=== PATIENT | male | born 1975 | race Caucasian/White ===

== ENCOUNTER 2017-01-27 12:58 | Emergency (ER) | payer OTHER ==
[2017-01-27 13:07] VITALS: BP 131/87; PULSE 97; TEMP 98.1; BMI 30.4
[2017-01-27] MEDS ORDERED: IBUPROFEN 600 MG TABLET (FP) PO ONE ×2 (13:34→13:38)
[2017-01-27] MEDS ORDERED: SULFAMETHOXAZOLE/TRIMETHOPRIM 800MG/160MG D.S. TABLET PO ONE (13:34)
--- NOTE | 2017-01-27 13:37 | PDOC ---
History of Present Illness - General Chief Complaint: Abscess Boil Stated Complaint: LEFT BUTTOCK BOIL Time Seen by Provider: 01/27/17 13:08 History Source: Patient Exam Limitations: No Limitations - History of Present Illness Initial Comments: 01/27/17 13:37 42-year-old male with history of lower back pain presents with left buttocks abscess. The patient reports that he had recently vacationed in the [facility] and noticed approximately one week ago that he was developing a small boil. We will had started to progress and enlarged until he arrived from the [facility] yesterday night. Denies any fevers or chills but came to the ED for further evaluation. Past History - Past Medical History Allergies/Adverse Reactions: Allergies Allergy/AdvReac Type Severity Reaction Status Date / Time No Known Allergies Allergy Verified 01/27/17 13:00 Home Medications: Ambulatory Orders Alprazolam [Xanax] 1 mg PO BID 01/27/17 Oxycodone HCl [Roxicodone] 30 mg PO TID 01/27/17 Sulfamethoxazole/Trimethoprim [Bactrim Ds -] 1 tab PO BID #14 tablet 01/27/17 Other medical history: HERNIATED DISC L4,L5/ARTHRITIS,BULGED DISC S1,S2,CRUSHED NERVE BTWEEN S1-S5 - Psycho/Social/Smoking Cessation Hx Anxiety: Yes Suicidal Ideation: No Smoking History: Current every day smoker Number of Cigarettes Smoked Daily: 10 Information on smoking cessation initiated: No Hx Alcohol Use: No Drug/Substance Use Hx: No Substance Use Type: None Review of Systems - Review of Systems Able to Perform ROS?: Yes Comments:: 01/27/17 13:38 GENERAL/CONSTITUTIONAL: No fever, weakness. HEAD, EYES, EARS, NOSE AND THROAT: No change in vision. No ear pain or discharge. No sore throat. CARDIOVASCULAR: No chest pain or shortness of breath. RESPIRATORY: No cough, wheezing, or hemoptysis. GASTROINTESTINAL: No abdominal pain, nausea, vomiting, diarrhea, or decreased PO intolerance. GENITOURINARY: No dysuria, frequency, or change in urination. MUSCULOSKELETAL: No joint or muscle swelling or pain. No neck or back pain. SKIN: + left buttocks abscess NEUROLOGIC: No headache, vertigo, loss of consciousness, or change in strength/ sensation. ENDOCRINE: No increased thirst. No abnormal weight change. HEMATOLOGIC/LYMPHATIC: No anemia, easy bleeding, or history of blood clots. ALLERGIC/IMMUNOLOGIC: No hives or skin allergy. *Physical Exam - Vital Signs Last Vital Signs Temp Pulse Resp BP Pulse Ox 98.1 F 97 H 18 131/87 98 01/27/17 13:05 01/27/17 13:05 01/27/17 13:05 01/27/17 13:05 01/27/17 13:05 - Physical Exam Comments: 01/27/17 13:38 GENERAL: Awake, alert, and fully oriented, in no acute distress. HEAD: No signs of trauma EYES: PERRLA, EOMI, sclera anicteric, conjunctiva clear ENT: Auricles normal inspection, hearing grossly normal, nares patent, oropharynx clear without exudates. NECK: Normal ROM, supple, no lymphadenopathy, JVD, or masses LUNGS: Breath sounds equal, clear to auscultation bilaterally. No wheezes, and no crackles HEART: Regular rate and rhythm, normal S1 and S2, no murmurs, rubs or gallops ABDOMEN: Soft, nontender, normoactive bowel sounds. No guarding, no rebound. No masses EXTREMITIES: Normal range of motion, no edema. No clubbing or cyanosis. No cords, erythema, or tenderness NEUROLOGICAL: Cranial nerves II through XII grossly intact. Normal speech, normal gait SKIN: ~4x4 cm induration and 1x1 cm fluctuance overlying the medial left buttocks. No rectal involvement. Procedures - Incision and Drainage I&D Site: Left: Buttock Betadine cleansed: (cleansed with alcohol pads) Anesthesia: 1% Lidocaine Volume(ml): 2 Blade Size: 11 Attempts: 1 Plain Packing: Yes Complications: other Medical Decision Making - Medical Decision Making 01/27/17 13:39 The patient appears to have an abscess on left buttocks. An incision and drainage was performed with approximately 3 mL of serosanguineous fluid extracted. The surrounding area appears to have elements of cellulitis. We'll initiate Bactrim. I have instructed the patient to return to the ED in 2 days for packing exchange. Patient verbalized understanding agrees with plan. I discussed the physical exam findings, ancillary test results and final diagnoses with the patient. I answered all of the patient's questions. The patient was satisfied with the care received and felt comfortable with the discharge plan and treatment plan. The patient will call their primary care physician within 24 hours to arrange follow-up and will return to the Emergency Department with any new, persistant or worsening symptoms. *DC/Admit/Observation/Transfer Diagnosis at time of Disposition: Abscess - Discharge Dispostion Disposition: HOME Condition at time of disposition: Improved Admit: No - Prescriptions Prescriptions: Sulfamethoxazole/Trimethoprim [Bactrim Ds -] 1 tab PO BID #14 tablet - Patient Instructions Printed Discharge Instructions: DI for Incision and Drainage of a Skin Abscess Additional Instructions: Take 600 mg of ibuprofen every 6 hours needed for pain. It is important that you take the antibiotics Bactrim every 12 hours for the next 7 days. Please do not miss a dose and please complete the antibiotics. If you notice any worsening pain or swelling despite antibiotics, please call your doctor or return to the ER for further evaluation. Please return to the ER in 2 days for wound check and for packing change.
[2017-01-27] MEDS ORDERED: SULFAMETHOXAZOLE/TRIMETHOPRIM 800MG/160MG D.S. TABLET ONE (13:39)
== END 2017-01-27 13:50 | disposition home or self-care (01) ==
LOC: FER 12:58
PROC: 0H98XZZ Drainage of Buttock Skin, External Approach (ICD-10-PCS; principal; 2017-01-27)
DX: L02.31 Cutaneous abscess of buttock (principal); F17.210 Nicotine dependence, cigarettes, uncomplicated
CPT/HCPCS: 10060; 99282-25

== ENCOUNTER 2021-02-06 14:44 | Emergency (ER) | payer OTHER ==
[2021-02-06 14:55] VITALS: BMI 31.6
[2021-02-06] MEDS ORDERED: COLCHICINE 0.6 MG TAB PO ONE ×2 (15:14→16:15)
[2021-02-06] MEDS ORDERED: COLCHICINE 0.6 MG CAP ONE ×2 (15:17→16:26)
[2021-02-06] MEDS ORDERED: IBUPROFEN 400 MG TABLET (FP) PO ONE ×3 (15:33→18:51)
[2021-02-06 16:48] VITALS: BP 150/97; PULSE 110; TEMP 98.1
== END 2021-02-06 16:50 | disposition home or self-care (01) ==
LOC: FER 14:44
DX: R22.42 Localized swelling, mass and lump, left lower limb (principal); S93.402A Sprain of unspecified ligament of left ankle, initial encounter
CPT/HCPCS: 73610-TC-LT-FY; 73630-TC-LT; 99284-25

== ENCOUNTER 2021-03-09 14:50 | Emergency (ER) | payer OTHER ==
[2021-03-09 15:16] VITALS: BMI 32.0
[2021-03-09 16:24] LABS: HEMATOCRIT 30.3 % (35.4-49); HEMOGLOBIN 9.9 GM/dl (11.7-16.9); MCH 35.3 pg (25.7-33.7); MCHC 32.5 g/dl (32.0-35.9); MEAN CELL VOLUME 108.6 fl (80-96); MEAN PLT VOLUME 7.1 fl (7.5-11.1); PLATELET COUNT 56 K/MM3 (134-434); RBC 2.79 M/mm3 (4.00-5.60); RDW 17.2 % (11.9-15.9); WHITE BLOOD COUNT 2.9 K/mm3 (4.0-10.8)
[2021-03-09 16:32] LABS: ACTIVATED PTT 24.3 SECONDS (25.2-36.5)
[2021-03-09 16:34] LABS: ALBUMIN 3.3 g/dl (3.4-5.0); BILIRUBIN,TOTAL 2.2 mg/dl (0.2-1); CALCIUM 7.6 mg/dl (8.5-10); CREATININE 1.3 mg/dl (0.55-1.3); TOT PROT 7.8 g/dl (6.4-8.2)
[2021-03-09 16:36] LABS: INR 1.49 (0.82-1.09); PROTHROMBIN TIME (PATIENT) 16.3 SEC (10.2-13.0)
[2021-03-09] MEDS ORDERED: POTASSIUM CHLORIDE ORAL LIQUID 20 MEQ/15 ML PO ONE (16:53)
[2021-03-09] MEDS ORDERED: SODIUM CHLORIDE 0.9% 500 ML INFUS.BAG IV ONE (16:54)
[2021-03-09] MEDS ORDERED: POTASSIUM CHLORIDE TABS 20 MEQ TABLET.ER (FP) PO ONE (17:00)
[2021-03-09 18:28] LABS: ANISOCYTOSIS 1+; PLATELET ESTIMATE DECREASED
[2021-03-09 21:02] VITALS: BP 147/98; PULSE 125; TEMP 98.8
== END 2021-03-09 21:00 | disposition left against medical advice (07) ==
LOC: FER 14:50
DX: R55 Syncope and collapse (principal); R00.0 Tachycardia, unspecified; E87.6 Hypokalemia; D69.6 Thrombocytopenia, unspecified
CPT/HCPCS: 36415; 70450-TC; 71260-TC; 72125-TC; 74177-TC; 80053; 85025; 85610; 85730; 93005; 99285-25; C9803; Q9967; U0003; U0005

== ENCOUNTER 2021-06-25 15:17 | Emergency (ER) | payer OTHER ==
[2021-06-25 15:33] VITALS: BP 126/54; PULSE 124; TEMP 99; BMI 32.0
== END 2021-06-25 16:48 | disposition home or self-care (01) ==
LOC: FER 15:17
PROC: 0H98XZZ Drainage of Buttock Skin, External Approach (ICD-10-PCS; principal; 2021-06-25)
DX: L02.31 Cutaneous abscess of buttock (principal)
CPT/HCPCS: 10060; 87070; 87076; 87205; 99284-25

== ENCOUNTER 2021-07-09 16:21 | Inpatient (IN) | payer OTHER ==
[2021-07-09] MEDS ORDERED: SODIUM CHLORIDE 0.9% 500 ML INFUS.BAG IV ONE ×2 (17:20→18:05)
[2021-07-09] MEDS ORDERED: ACETAMINOPHEN 1000 MG/100 ML VIAL (NON FORMULARY) IVPB ONE (17:20)
[2021-07-09 17:34] LABS: HEMATOCRIT 25.1 % (35.4-49); HEMOGLOBIN 8.4 GM/dl (11.7-16.9); MCH 36.6 pg (25.7-33.7); MCHC 33.6 g/dl (32.0-35.9); MEAN PLT VOLUME 7.6 fl (7.5-11.1); PLATELET COUNT 49 10^3/uL (134-434); RDW 17.4 % (11.9-15.9); WHITE BLOOD COUNT 3.1 K/mm3 (4.0-10.8)
[2021-07-09 17:41] LABS: ACTIVATED PTT 24.1 SECONDS (25.2-36.5)
[2021-07-09 17:43] LABS: ALBUMIN 2.4 g/dl (3.4-5.0); BILIRUBIN,TOTAL 3.4 mg/dl (0.2-1); TOT PROT 7.2 g/dl (6.4-8.2)
[2021-07-09] MEDS ORDERED: ACETAMINOPHEN INJECTION 100 ML IVPB ONE (17:44)
[2021-07-09 17:45] LABS: INR 1.59 (0.82-1.09); PROTHROMBIN TIME (PATIENT) 17.8 SEC (10.2-13.0)
[2021-07-09 17:47] LABS: CALCIUM 5.8 mg/dl (8.5-10)
[2021-07-09 18:19] LABS: BASO % 0.3 % (0-2.0); HEMATOCRIT 23.8 % (35.4-49); HEMOGLOBIN 8.1 GM/dl (11.7-16.9); LYMPH % 6.9 % (8-40); MCHC 33.9 g/dl (32.0-35.9); MEAN CELL VOLUME 109.3 fl (80-96); MEAN PLT VOLUME 7.5 fl (7.5-11.1); MONO % 18.5 % (3.8-10.2); NEUT % 74.3 % (42.8-82.8); PLATELET COUNT 46 10^3/uL (134-434); RBC 2.18 M/mm3 (4.00-5.60); RDW 17.1 % (11.9-15.9); WHITE BLOOD COUNT 3.3 K/mm3 (4.0-10.8)
[2021-07-09 18:35] LABS: ANISOCYTOSIS 1+; MACROCYTOSIS 1+; PLATELET ESTIMATE DECREASED
[2021-07-09 18:38] LABS: ALBUMIN 2.5 g/dl (3.4-5.0); BILIRUBIN,TOTAL 3.2 mg/dl (0.2-1); CREATININE 1.8 mg/dl (0.55-1.3); TOT PROT 7.1 g/dl (6.4-8.2)
[2021-07-09 18:45] LABS: CALCIUM 5.7 mg/dl (8.5-10)
[2021-07-09] MEDS ORDERED: PIPERACILLIN/TAZOB 3.375 GM 3.375 GM in DEXTROSE 5%-WATER - 50 ML IVPB ONE (18:59)
[2021-07-09] MEDS ORDERED: VANCOMYCIN HCL 1,500 MG in DEXTROSE 5%-WATER - 500 ML IVPB ONE (18:59)
[2021-07-09] MEDS ORDERED: CALCIUM GLUC IN NACL, ISO-OSM 1 GM/50 ML BAG IVPB ONE (19:11)
[2021-07-09] MEDS ORDERED: POTASSIUM CHLORIDE TABS 20 MEQ TABLET.ER (FP) PO ONE ×2 (19:12→20:07)
[2021-07-09 19:21] LABS: URIC ACID 9.2 mg/dl (2.6-7.2)
[2021-07-09] MEDS ORDERED: PIPERACILLIN/TAZOBACTAM 3.375 GM VIAL IVPB ONE (19:24)
[2021-07-09] MEDS ORDERED: VANCOMYCIN 1,000 MG VIAL (RESTRICTED TO ID ONLY) ONE (19:24)
[2021-07-09] MEDS ORDERED: CALCIUM GLUCONATE 10% - 1,000 MG/10 ML VIAL ONE (20:07)
[2021-07-09] MEDS ORDERED: KCL 10 MEQ IVPB 10 MEQ/100 ML INFUS.BAG IVPB ONE ×2 (20:07→20:36)
[2021-07-09] MEDS: KCL 10 MEQ IVPB 10 MEQ/100 ML INFUS.BAG IVPB SCH ×2 (20:17→21:01)
[2021-07-09 20:59] LABS: URIC ACID CRYSTALS 1+ /hpf (NONE SEEN)
[2021-07-09] MEDS ORDERED: oxyCODONE HCL 5 MG TABLET PO ONE (21:10)
[2021-07-09] MEDS ORDERED: oxyCODONE HCL 5 MG TABLET ONE (21:13)
[2021-07-09] MEDS ORDERED: ALPRAZolam 0.25 MG TABLET ONE (21:13)
[2021-07-09] MEDS: ALPRAZolam 1 MG TABLET PO PRN (21:25)
[2021-07-09 22:42] LABS: CALCIUM 5.7 mg/dl (8.5-10); CREATININE 1.9 mg/dl (0.55-1.3)
[2021-07-10] MEDS ORDERED: ACETAMINOPHEN 325 MG TABLET (FP) ONE (02:36)
[2021-07-10] MEDS ORDERED: oxyCODONE HCL 5 MG TABLET ONE (02:37)
[2021-07-10] MEDS ORDERED: oxyCODONE HCL 5 MG TABLET PO ONE (04:05)
[2021-07-10 05:16] LABS: HEMATOCRIT 19.5 % (35.4-49); MCH 37.7 pg (25.7-33.7); MCHC 35.5 g/dl (32.0-35.9); MEAN CELL VOLUME 106.3 fl (80-96); MEAN PLT VOLUME 7.4 fl (7.5-11.1); PLATELET COUNT 38 10^3/uL (134-434); RBC 1.84 M/mm3 (4.00-5.60); RDW 17.9 % (11.9-15.9)
[2021-07-10 05:39] LABS: HEMOGLOBIN 6.9 GM/dL (11.7-16.9); WHITE BLOOD COUNT 1.8 K/mm3 (4.0-10.0)
[2021-07-10] MEDS: ALPRAZolam 1 MG TABLET PO PRN ×2 (05:59→22:25)
[2021-07-10 06:10] LABS: ANION GAP 12 MMOL/L (8-16); BLOOD UREA NITROGEN 19.3 mg/dL (7-18); CALCIUM 5.7 mg/dL (8.5-10.1); CHLORIDE 82 mmol/L (98-107); CO2 27 mmol/L (21-32); CREATININE 1.8 mg/dL (0.55-1.3); GLUCOSE,RANDOM 91 mg/dL (74-106); MAGNESIUM 0.8 mg/dL (1.8-2.4); PHOSPHOROUS 2.9 mg/dL (2.5-4.9); SODIUM 121 mmol/L (136-145)
[2021-07-10] MEDS ORDERED: MAGNESIUM SULF 50% (8.12 MEQ/2 ML-1 GM VIAL) IVPB ONE ×2 (08:39→17:26)
[2021-07-10] MEDS ORDERED: CALCIUM GLUCONATE 10% - 1,000 MG/10 ML VIAL IVPB ONE (08:45)
[2021-07-10] MEDS: POTASSIUM CHLORIDE TABS 20 MEQ TABLET.ER (FP) PO SCH ×2 (09:45→10:11)
[2021-07-10 09:50] LABS: ANISOCYTOSIS 2+; MACROCYTOSIS 2+; PLATELET ESTIMATE DECREASED
[2021-07-10] MEDS: KCL 10 MEQ IVPB 10 MEQ/100 ML INFUS.BAG IVPB SCH ×6 (11:00→20:00)
[2021-07-10] MEDS: MUPIROCIN 2% TOPICAL OINTMENT FOR DECOLONIZATION NS SCH ×2 (11:34→21:24)
[2021-07-10] MEDS: oxyCODONE HCL 5 MG TABLET PO PRN ×3 (12:30→22:25)
[2021-07-10 16:46] LABS: HEMATOCRIT 20.9 % (35.4-49); HEMOGLOBIN 7.2 GM/dL (11.7-16.9); MCH 37.1 pg (25.7-33.7); MCHC 34.6 g/dl (32.0-35.9); MEAN CELL VOLUME 107.2 fl (80-96); MEAN PLT VOLUME 7.8 fl (7.5-11.1); PLATELET COUNT 38 10^3/uL (134-434); RBC 1.95 M/mm3 (4.00-5.60); RDW 18.4 % (11.9-15.9)
[2021-07-10 16:58] LABS: CHLORIDE 88 mmol/L (98-107); SODIUM 124 mmol/L (136-145)
[2021-07-10 17:00] LABS: ANION GAP 10 MMOL/L (8-16); BLOOD UREA NITROGEN 17.1 mg/dL (7-18); CO2 26 mmol/L (21-32); GLUCOSE,RANDOM 138 mg/dL (74-106)
[2021-07-10 17:04] LABS: CREATININE 1.7 mg/dL (0.55-1.3)
[2021-07-10 17:08] LABS: CALCIUM 6.4 mg/dL (8.5-10.1); WHITE BLOOD COUNT 1.3 K/mm3 (4.0-10.0)
[2021-07-10] MEDS ORDERED: CALCIUM GLUCONATE 10% - 1,000 MG/10 ML VIAL IVPUSH ONE (17:19)
[2021-07-10 17:22] LABS: MAGNESIUM 1.4 mg/dL (1.8-2.4)
[2021-07-10 17:26] LABS: PHOSPHOROUS 2.4 mg/dL (2.5-4.9)
[2021-07-10] MEDS ORDERED: ALPRAZolam 1 MG TABLET PO PRN (18:30)
[2021-07-10 18:39] LABS: ANISOCYTOSIS 0; MACROCYTOSIS 0; PLATELET ESTIMATE DECREASED
[2021-07-10] MEDS: CALCIUM (OYSTER SHELL) 500 MG TABLET (FP) PO SCH (21:24)
[2021-07-10] MEDS: CHLORHEXIDINE GLUCONATE 4% CLEANSER FOR DECOLONIZATION TP SCH (21:24)
[2021-07-10] MEDS ORDERED: ALPRAZolam 1 MG TABLET PO SCH (22:00)
[2021-07-10 22:09] LABS: CHLORIDE 88 mmol/L (98-107); SODIUM 126 mmol/L (136-145)
[2021-07-10 22:11] LABS: ANION GAP 11 MMOL/L (8-16); BLOOD UREA NITROGEN 16.5 mg/dL (7-18); CO2 26 mmol/L (21-32); MAGNESIUM 1.7 mg/dL (1.8-2.4)
[2021-07-10 22:12] LABS: GLUCOSE,RANDOM 126 mg/dL (74-106)
[2021-07-10 22:14] LABS: CREATININE 1.6 mg/dL (0.55-1.3); SGOT/AST 86 U/L (15-37)
[2021-07-10 22:15] LABS: PHOSPHOROUS 1.8 mg/dL (2.5-4.9)
[2021-07-10 22:16] LABS: BILIRUBIN,TOTAL 2.1 mg/dL (0.2-1); TOT PROT 6.9 g/dl (6.4-8.2)
[2021-07-10 22:17] LABS: ALK PHOS 116 U/L (45-117)
[2021-07-10 22:23] LABS: SGPT/ALT 41 U/L (13-61)
[2021-07-10 22:34] LABS: CALCIUM 6.9 mg/dL (8.5-10.1)
[2021-07-11] MEDS: ALPRAZolam 1 MG TABLET PO PRN ×3 (02:56→19:57)
[2021-07-11] MEDS: oxyCODONE HCL 5 MG TABLET PO PRN ×4 (02:56→21:40)
[2021-07-11] MEDS ORDERED: NAPH,MB-DB/K PH,MBDB POWDER PACKET PO ONE (05:00)
[2021-07-11] MEDS ORDERED: MAGNESIUM OXIDE 400 MG TABLET (FP) PO ONE (05:00)
[2021-07-11 06:41] LABS: HEMATOCRIT 19.5 % (35.4-49); MCH 37.6 pg (25.7-33.7); MCHC 34.6 g/dl (32.0-35.9); MEAN CELL VOLUME 108.7 fl (80-96); PLATELET COUNT 45 10^3/uL (134-434); RBC 1.79 M/mm3 (4.00-5.60); RDW 17.9 % (11.9-15.9)
[2021-07-11 06:51] LABS: HEMOGLOBIN 6.7 GM/dL (11.7-16.9); WHITE BLOOD COUNT 1.6 K/mm3 (4.0-10.0)
[2021-07-11 06:55] LABS: CHLORIDE 90 mmol/L (98-107); SODIUM 127 mmol/L (136-145)
[2021-07-11 07:04] LABS: ALBUMIN 1.8 g/dl (3.4-5.0); ANION GAP 10 MMOL/L (8-16); BLOOD UREA NITROGEN 13.2 mg/dL (7-18); CO2 27 mmol/L (21-32); GLUCOSE,RANDOM 97 mg/dL (74-106); MAGNESIUM 1.5 mg/dL (1.8-2.4)
[2021-07-11 07:07] LABS: CREATININE 1.5 mg/dL (0.55-1.3); PHOSPHOROUS 2.6 mg/dL (2.5-4.9); SGOT/AST 75 U/L (15-37); SGPT/ALT 36 U/L (13-61)
[2021-07-11 07:08] LABS: BILIRUBIN,TOTAL 2.4 mg/dL (0.2-1); TOT PROT 6.4 g/dl (6.4-8.2)
[2021-07-11 07:10] LABS: ALK PHOS 107 U/L (45-117)
[2021-07-11 07:30] LABS: CALCIUM 6.8 mg/dL (8.5-10.1)
[2021-07-11] MEDS ORDERED: MAGNESIUM SULF 50% (8.12 MEQ/2 ML-1 GM VIAL) IVPB ONE (07:45)
[2021-07-11 08:57] LABS: ANISOCYTOSIS 2+; MACROCYTOSIS 2+; PLATELET ESTIMATE DECREASED
[2021-07-11] MEDS: KCL 10 MEQ IVPB 10 MEQ/100 ML INFUS.BAG IVPB SCH ×3 (09:00→12:14)
[2021-07-11] MEDS ORDERED: PT OWN MED DRAWER 7, Y5N ONE ×4 (09:26→21:37)
[2021-07-11] MEDS: MUPIROCIN 2% TOPICAL OINTMENT FOR DECOLONIZATION NS SCH ×2 (09:33→21:42)
[2021-07-11] MEDS: CALCIUM (OYSTER SHELL) 500 MG TABLET (FP) PO SCH ×2 (09:34→22:52)
[2021-07-11] MEDS: POTASSIUM CHLORIDE ORAL LIQUID 20 MEQ/15 ML PO SCH ×2 (09:37→09:59)
[2021-07-11] MEDS ORDERED: POTASSIUM CHLORIDE TABS 20 MEQ TABLET.ER (FP) PO SCH ×2 (10:00→11:15)
[2021-07-11] MEDS ORDERED: SODIUM CHLORIDE 1,000 ML IV SCH (11:00)
[2021-07-11] MEDS: POTASSIUM CHLORIDE TABS 20 MEQ TABLET.ER (FP) PO SCH ×2 (12:45→21:40)
[2021-07-11 12:49] LABS: URINE BARBITURATES NEGATIVE (NEGATIVE)
[2021-07-11 12:50] LABS: METHADONE, UR NEGATIVE (NEGATIVE); OPIATES, URI NEGATIVE (NEGATIVE); PHENCYCLIDINE,URINE NEGATIVE (NEGATIVE)
[2021-07-11 12:52] LABS: COCAINE, UR NEGATIVE (NEGATIVE); URINE AMPHETAMINES NEGATIVE (NEGATIVE); URINE BENZODIAZEPINES POSITIVE (NEGATIVE)
[2021-07-11 12:52] LABS: LDH 141 U/L (87-246)
[2021-07-11 16:06] LABS: INR 1.26 (0.83-1.09); PROTHROMBIN TIME (PATIENT) 15.5 SEC (9.7-13.0)
[2021-07-11 16:09] LABS: ACTIVATED PTT 26.9 SECONDS (25.2-36.5)
[2021-07-11 16:30] LABS: CALCIUM 7.2 mg/dL (8.5-10.1)
[2021-07-11 16:31] LABS: MAGNESIUM 1.9 mg/dL (1.8-2.4)
[2021-07-11 16:34] LABS: CREATININE 1.4 mg/dL (0.55-1.3); PHOSPHOROUS 2.6 mg/dL (2.5-4.9)
[2021-07-11 16:35] LABS: BLOOD UREA NITROGEN 13.1 mg/dL (7-18)
[2021-07-11] MEDS ORDERED: PANTOPRAZOLE 40 MG TABLET PO ONE (18:00)
[2021-07-11 21:25] LABS: HEMATOCRIT 23.1 % (35.4-49); HEMOGLOBIN 7.9 GM/dL (11.7-16.9); MCH 36.1 pg (25.7-33.7); MCHC 34.1 g/dl (32.0-35.9); PLATELET COUNT 48 10^3/uL (134-434); RBC 2.18 M/mm3 (4.00-5.60)
[2021-07-11] MEDS: CHLORHEXIDINE GLUCONATE 4% CLEANSER FOR DECOLONIZATION TP SCH (21:42)
[2021-07-11 21:49] LABS: CALCIUM 7.9 mg/dL (8.5-10.1)
[2021-07-11 21:50] LABS: BLOOD UREA NITROGEN 12.2 mg/dL (7-18)
[2021-07-11 21:53] LABS: CREATININE 1.4 mg/dL (0.55-1.3)
[2021-07-11 22:20] LABS: ANISOCYTOSIS 2+; MACROCYTOSIS 1+; PLATELET ESTIMATE DECREASED; TARGET CELLS 1+
[2021-07-12] MEDS: ALPRAZolam 1 MG TABLET PO PRN (01:30)
[2021-07-12] MEDS: oxyCODONE HCL 5 MG TABLET PO PRN ×3 (01:40→20:30)
[2021-07-12 02:48] LABS: CALCIUM 7.7 mg/dL (8.5-10.1)
[2021-07-12 02:49] LABS: BLOOD UREA NITROGEN 11.2 mg/dL (7-18)
[2021-07-12 02:52] LABS: CREATININE 1.4 mg/dL (0.55-1.3)
[2021-07-12 06:56] LABS: INR 1.26 (0.83-1.09); PROTHROMBIN TIME (PATIENT) 15.5 SEC (9.7-13.0)
[2021-07-12 06:57] LABS: MCH 36.4 pg (25.7-33.7); MCHC 34.2 g/dl (32.0-35.9); MEAN CELL VOLUME 106.2 fl (80-96); MEAN PLT VOLUME 7.5 fl (7.5-11.1); PLATELET COUNT 67 10^3/uL (134-434); RBC 1.88 M/mm3 (4.00-5.60); RDW 20.1 % (11.9-15.9)
[2021-07-12 06:58] LABS: ACTIVATED PTT 26.7 SECONDS (25.2-36.5)
[2021-07-12 07:06] LABS: HEMOGLOBIN 6.8 GM/dL (11.7-16.9); WHITE BLOOD COUNT 1.6 K/mm3 (4.0-10.0)
[2021-07-12 07:08] LABS: CHLORIDE 96 mmol/L (98-107); SODIUM 131 mmol/L (136-145)
[2021-07-12 07:18] LABS: BILIRUBIN,TOTAL 1.5 mg/dL (0.2-1)
[2021-07-12 07:19] LABS: ALBUMIN 1.9 g/dl (3.4-5.0); ANION GAP 7 MMOL/L (8-16); CALCIUM 7.5 mg/dL (8.5-10.1); CO2 29 mmol/L (21-32); GLUCOSE,RANDOM 83 mg/dL (74-106)
[2021-07-12 07:20] LABS: ALK PHOS 98 U/L (45-117); CREATININE 1.3 mg/dL (0.55-1.3); MAGNESIUM 1.5 mg/dL (1.8-2.4); PHOSPHOROUS 2.3 mg/dL (2.5-4.9); SGOT/AST 43 U/L (15-37); SGPT/ALT 32 U/L (13-61)
[2021-07-12 07:21] LABS: TOT PROT 6.2 g/dl (6.4-8.2)
[2021-07-12 07:23] LABS: BLOOD UREA NITROGEN 10.2 mg/dL (7-18)
[2021-07-12] MEDS ORDERED: MAGNESIUM SULF 50% (8.12 MEQ/2 ML-1 GM VIAL) IVPB ONE (07:29)
[2021-07-12 09:02] LABS: ANISOCYTOSIS 2+; MACROCYTOSIS 2+; PLATELET ESTIMATE DECREASED
[2021-07-12] MEDS ORDERED: SODIUM PHOSPHATE - 15 MM in SODIUM CHLORIDE 250 ML IVPB ONE (09:15)
[2021-07-12] MEDS: POTASSIUM CHLORIDE TABS 20 MEQ TABLET.ER (FP) PO SCH ×2 (10:17→21:56)
[2021-07-12] MEDS ORDERED: ALPRAZolam 1 MG TABLET PO PRN (10:50)
[2021-07-12] MEDS ORDERED: SODIUM CHLORIDE 1,000 ML IV SCH ×2 (11:15→22:04)
[2021-07-12] MEDS: MUPIROCIN 2% TOPICAL OINTMENT FOR DECOLONIZATION NS SCH ×2 (12:46→22:03)
[2021-07-12] MEDS ORDERED: CEFEPIME HCL/D5W 2 GM/50 ML BAG IVPB SCH ×2 (14:12→22:00)
[2021-07-12] MEDS ORDERED: CEFEPIME 2 GM in DEXTROSE 5%-WATER 2 GM/100 ML BAG IVPB SCH ×2 (14:15→22:00)
[2021-07-12 14:37] VITALS: BMI 31.5
[2021-07-12] MEDS: CEFEPIME 1 GM in DEXTROSE 5%-WATER 100 ML IVPB SCH (17:05)
[2021-07-12] MEDS: VANCOMYCIN 1 GRAM (PRE-DOCKED) 1,000 MG/250 ML BAG IVPB SCH (17:43)
[2021-07-12 18:41] LABS: BASO % 1.3 % (0-2.0); EOS % 0.5 % (0-4.5); HEMATOCRIT 23.7 % (35.4-49); HEMOGLOBIN 8.2 GM/dL (11.7-16.9); LYMPH % 22.6 % (8-40); MCH 35.6 pg (25.7-33.7); MCHC 34.5 g/dl (32.0-35.9); MEAN CELL VOLUME 103.4 fl (80-96); MEAN PLT VOLUME 7.7 fl (7.5-11.1); MONO % 18.3 % (3.8-10.2); NEUT % 57.3 % (42.8-82.8); PLATELET COUNT 62 10^3/uL (134-434); RBC 2.29 M/mm3 (4.00-5.60); RDW 20.7 % (11.9-15.9)
[2021-07-12 19:34] LABS: ANISOCYTOSIS 2+; MACROCYTOSIS 1+; PLATELET ESTIMATE DECREASED
[2021-07-12] MEDS: CHLORHEXIDINE GLUCONATE 4% CLEANSER FOR DECOLONIZATION TP SCH (22:04)
[2021-07-12 22:06] LABS: HIV INTERPRETATION NEGATIVE (NEGATIVE)
[2021-07-13] MEDS: oxyCODONE HCL 5 MG TABLET PO PRN ×5 (00:14→22:39)
[2021-07-13] MEDS: ALPRAZolam 1 MG TABLET PO PRN ×3 (00:15→22:39)
[2021-07-13] MEDS ORDERED: DEXTROSE 5%-WATER 100 ML IVPB ONE ×3 (01:05→16:10)
[2021-07-13] MEDS ORDERED: CEFEPIME HCL 1 GM VIAL (RESTRICTED TO ID) ONE ×3 (01:05→16:10)
[2021-07-13] MEDS: CEFEPIME 1 GM in DEXTROSE 5%-WATER 100 ML IVPB SCH ×3 (01:20→17:01)
[2021-07-13] MEDS ORDERED: MELATONIN 5 MG TABLETS PO PRN (02:45)
[2021-07-13] MEDS: VANCOMYCIN 1 GRAM (PRE-DOCKED) 1,000 MG/250 ML BAG IVPB SCH ×2 (04:46→16:36)
[2021-07-13 08:50] LABS: HEMATOCRIT 21.8 % (35.4-49); HEMOGLOBIN 7.5 GM/dL (11.7-16.9); MCH 36.1 pg (25.7-33.7); MCHC 34.2 g/dl (32.0-35.9); MEAN CELL VOLUME 105.3 fl (80-96); MEAN PLT VOLUME 7.1 fl (7.5-11.1); PLATELET COUNT 56 10^3/uL (134-434); RBC 2.07 M/mm3 (4.00-5.60); RDW 21.1 % (11.9-15.9)
[2021-07-13 09:10] LABS: WHITE BLOOD COUNT 1.8 K/mm3 (4.0-10.0)
[2021-07-13 09:12] LABS: CALCIUM 7.7 mg/dL (8.5-10.1)
[2021-07-13 09:13] LABS: MAGNESIUM 1.5 mg/dL (1.8-2.4)
[2021-07-13 09:16] LABS: CREATININE 1.3 mg/dL (0.55-1.3); PHOSPHOROUS 3.1 mg/dL (2.5-4.9)
[2021-07-13 09:18] LABS: BILIRUBIN,TOTAL 1.9 mg/dL (0.2-1); TOT PROT 6.7 g/dl (6.4-8.2)
[2021-07-13] MEDS ORDERED: MUPIROCIN 2% TOPICAL OINTMENT FOR DECOLONIZATION NS SCH (10:00)
[2021-07-13 10:19] LABS: ANISOCYTOSIS 1+; MACROCYTOSIS 1+; PLATELET ESTIMATE DECREASED
[2021-07-13] MEDS ORDERED: MAGNESIUM SULF 50% (8.12 MEQ/2 ML-1 GM VIAL) IVPB ONE (15:08)
[2021-07-13] MEDS ORDERED: MAGNESIUM 2GM/50ML STERILE WATER IVPB IVPB ONE (16:15)
[2021-07-13] MEDS: MAGNESIUM OXIDE 400 MG TABLET (FP) PO SCH (16:32)
[2021-07-13 17:08] LABS: FREE KAPPA,SERUM 141.8 mg/L (3.3-19.4)
[2021-07-13] MEDS: MELATONIN 5 MG TABLETS PO SCH (22:20)
[2021-07-13] MEDS ORDERED: diphenhydrAMINE HCL 25 MG CAPSULE (FP) PO ONE (23:00)
[2021-07-13] MEDS ORDERED: ZOLPIDEM TARTRATE 5 MG TABLET PO ONE (23:23)
[2021-07-14] MEDS ORDERED: DEXTROSE 5%-WATER 100 ML IVPB ONE ×3 (00:30→16:42)
[2021-07-14] MEDS ORDERED: CEFEPIME HCL 1 GM VIAL (RESTRICTED TO ID) ONE ×3 (00:30→16:42)
[2021-07-14] MEDS: CEFEPIME 1 GM in DEXTROSE 5%-WATER 100 ML IVPB SCH ×3 (01:24→18:46)
[2021-07-14] MEDS: VANCOMYCIN 1 GRAM (PRE-DOCKED) 1,000 MG/250 ML BAG IVPB SCH ×2 (04:14→19:39)
[2021-07-14 09:29] LABS: BASO % 0.6 % (0-2.0); EOS % 1.4 % (0-4.5); HEMATOCRIT 24.4 % (35.4-49); HEMOGLOBIN 8.4 GM/dL (11.7-16.9); LYMPH % 29.8 % (8-40); MCH 36.9 pg (25.7-33.7); MCHC 34.4 g/dl (32.0-35.9); MEAN CELL VOLUME 107.3 fl (80-96); MEAN PLT VOLUME 7.3 fl (7.5-11.1); MONO % 15.5 % (3.8-10.2); NEUT % 52.7 % (42.8-82.8); PLATELET COUNT 65 10^3/uL (134-434); RBC 2.27 M/mm3 (4.00-5.60); RDW 20.1 % (11.9-15.9); WHITE BLOOD COUNT 2.2 K/mm3 (4.0-10.0)
[2021-07-14 09:51] LABS: ALBUMIN 2.2 g/dl (3.4-5.0); BLOOD UREA NITROGEN 8.9 mg/dL (7-18)
[2021-07-14 09:55] LABS: MAGNESIUM 1.5 mg/dL (1.8-2.4)
[2021-07-14 09:57] LABS: CREATININE 1.3 mg/dL (0.55-1.3)
[2021-07-14] MEDS: MAGNESIUM OXIDE 400 MG TABLET (FP) PO SCH (10:00)
[2021-07-14 10:02] LABS: BILIRUBIN,TOTAL 1.6 mg/dL (0.2-1); TOT PROT 7.3 g/dl (6.4-8.2)
[2021-07-14] MEDS: oxyCODONE HCL 5 MG TABLET PO PRN ×4 (10:48→23:04)
[2021-07-14 12:14] LABS: ANISOCYTOSIS 1+; MACROCYTOSIS 1+; PLATELET ESTIMATE DECREASED
[2021-07-14] MEDS: ALPRAZolam 1 MG TABLET PO PRN ×2 (13:38→21:54)
[2021-07-14] MEDS: metroNIDAZOLE 250 MG TABLET PO SCH ×2 (13:39→21:54)
[2021-07-14] MEDS: ZOLPIDEM TARTRATE 5 MG TABLET PO PRN (21:54)
[2021-07-14] MEDS: MELATONIN 5 MG TABLETS PO SCH (21:54)
[2021-07-15] MEDS ORDERED: CEFEPIME HCL 1 GM VIAL (RESTRICTED TO ID) ONE ×3 (00:29→16:35)
[2021-07-15] MEDS ORDERED: DEXTROSE 5%-WATER 100 ML IVPB ONE ×3 (00:29→16:35)
[2021-07-15] MEDS: CEFEPIME 1 GM in DEXTROSE 5%-WATER 100 ML IVPB SCH ×3 (01:24→17:38)
[2021-07-15] MEDS: metroNIDAZOLE 250 MG TABLET PO SCH ×3 (05:36→22:18)
[2021-07-15] MEDS: VANCOMYCIN 1 GRAM (PRE-DOCKED) 1,000 MG/250 ML BAG IVPB SCH ×2 (05:37→16:16)
[2021-07-15] MEDS: oxyCODONE HCL 5 MG TABLET PO PRN ×5 (05:37→22:17)
[2021-07-15] MEDS ORDERED: FOLIC ACID INJECTION - 1 MG, THIAMINE HCL 100 MG, MULTIVIT INJECTION ADULT 10 ML in SOD... IVPB ONE (08:50)
[2021-07-15] MEDS: FOLIC ACID 1 MG TABLET (FP) PO SCH (09:54)
[2021-07-15] MEDS: THIAMINE HCL 100 MG TABLET (FP) PO SCH (09:54)
[2021-07-15] MEDS: MAGNESIUM OXIDE 400 MG TABLET (FP) PO SCH (09:54)
[2021-07-15 11:14] LABS: HEMATOCRIT 21.5 % (35.4-49); HEMOGLOBIN 7.4 GM/dL (11.7-16.9); MCH 36.6 pg (25.7-33.7); MCHC 34.3 g/dl (32.0-35.9); MEAN CELL VOLUME 106.5 fl (80-96); MEAN PLT VOLUME 7.2 fl (7.5-11.1); PLATELET COUNT 48 10^3/uL (134-434); RBC 2.02 M/mm3 (4.00-5.60); RDW 19.7 % (11.9-15.9)
[2021-07-15 11:25] LABS: WHITE BLOOD COUNT 1.5 K/mm3 (4.0-10.0)
[2021-07-15 11:37] LABS: CALCIUM 7.7 mg/dL (8.5-10.1)
[2021-07-15 11:38] LABS: BLOOD UREA NITROGEN 10.1 mg/dL (7-18); MAGNESIUM 1.3 mg/dL (1.8-2.4)
[2021-07-15 11:41] LABS: CREATININE 1.3 mg/dL (0.55-1.3)
[2021-07-15 11:42] LABS: BILIRUBIN,TOTAL 1.5 mg/dL (0.2-1); TOT PROT 6.8 g/dl (6.4-8.2)
[2021-07-15 11:48] LABS: ANISOCYTOSIS 1+; MACROCYTOSIS 1+; PLATELET ESTIMATE DECREASED
[2021-07-15] MEDS ORDERED: PT OWN MED DRAWER 7, Y5N ONE ×2 (12:17→16:06)
[2021-07-15 14:08] LABS: DRVVT - 37.7 sec (0.0-47.0)
[2021-07-15] MEDS: ALPRAZolam 1 MG TABLET PO PRN ×3 (14:12→22:18)
[2021-07-15] MEDS: MELATONIN 5 MG TABLETS PO SCH (22:18)
[2021-07-16] MEDS: ZOLPIDEM TARTRATE 5 MG TABLET PO PRN (00:41)
[2021-07-16] MEDS ORDERED: CEFEPIME HCL 1 GM VIAL (RESTRICTED TO ID) ONE ×3 (02:00→19:49)
[2021-07-16] MEDS ORDERED: DEXTROSE 5%-WATER 100 ML IVPB ONE ×3 (02:01→19:49)
[2021-07-16] MEDS: oxyCODONE HCL 5 MG TABLET PO PRN ×6 (02:18→22:30)
[2021-07-16] MEDS: CEFEPIME 1 GM in DEXTROSE 5%-WATER 100 ML IVPB SCH ×3 (02:18→19:54)
[2021-07-16] MEDS: VANCOMYCIN 1 GRAM (PRE-DOCKED) 1,000 MG/250 ML BAG IVPB SCH ×2 (06:20→20:26)
[2021-07-16] MEDS: metroNIDAZOLE 250 MG TABLET PO SCH ×3 (06:21→21:15)
[2021-07-16 08:45] LABS: HEMATOCRIT 20.9 % (35.4-49); HEMOGLOBIN 7.2 GM/dL (11.7-16.9); MCH 36.9 pg (25.7-33.7); MCHC 34.3 g/dl (32.0-35.9); MEAN CELL VOLUME 107.7 fl (80-96); MEAN PLT VOLUME 7.4 fl (7.5-11.1); PLATELET COUNT 40 10^3/uL (134-434); RBC 1.94 M/mm3 (4.00-5.60); RDW 19.8 % (11.9-15.9)
[2021-07-16 09:22] LABS: BILIRUBIN,TOTAL 1.6 mg/dL (0.2-1); BLOOD UREA NITROGEN 10.7 mg/dL (7-18); TOT PROT 6.6 g/dl (6.4-8.2)
[2021-07-16 09:23] LABS: CALCIUM 7.6 mg/dL (8.5-10.1); MAGNESIUM 1.4 mg/dL (1.8-2.4)
[2021-07-16 09:25] LABS: CREATININE 1.4 mg/dL (0.55-1.3)
[2021-07-16 09:28] LABS: WHITE BLOOD COUNT 1.6 K/mm3 (4.0-10.0)
[2021-07-16] MEDS: MAGNESIUM OXIDE 400 MG TABLET (FP) PO SCH (09:36)
[2021-07-16] MEDS: FOLIC ACID 1 MG TABLET (FP) PO SCH (09:36)
[2021-07-16 09:41] LABS: ANISOCYTOSIS 0; MACROCYTOSIS 1+; PLATELET ESTIMATE DECREASED
[2021-07-16] MEDS: THIAMINE HCL 100 MG TABLET (FP) PO SCH (09:52)
[2021-07-16] MEDS: ALPRAZolam 1 MG TABLET PO PRN ×2 (14:29→23:41)
[2021-07-16] MEDS: MELATONIN 5 MG TABLETS PO SCH (23:23)
[2021-07-17] MEDS ORDERED: DEXTROSE 5%-WATER 100 ML IVPB ONE ×3 (00:21→17:35)
[2021-07-17] MEDS ORDERED: CEFEPIME HCL 1 GM VIAL (RESTRICTED TO ID) ONE ×3 (00:21→17:35)
[2021-07-17] MEDS: ZOLPIDEM TARTRATE 5 MG TABLET PO PRN (00:39)
[2021-07-17] MEDS: CEFEPIME 1 GM in DEXTROSE 5%-WATER 100 ML IVPB SCH ×3 (01:36→17:47)
[2021-07-17] MEDS: VANCOMYCIN 1 GRAM (PRE-DOCKED) 1,000 MG/250 ML BAG IVPB SCH ×2 (04:24→16:08)
[2021-07-17] MEDS: metroNIDAZOLE 250 MG TABLET PO SCH ×3 (05:49→22:00)
[2021-07-17] MEDS: THIAMINE HCL 100 MG TABLET (FP) PO SCH (09:22)
[2021-07-17] MEDS: FOLIC ACID 1 MG TABLET (FP) PO SCH (09:22)
[2021-07-17] MEDS: MAGNESIUM OXIDE 400 MG TABLET (FP) PO SCH (09:22)
[2021-07-17] MEDS: oxyCODONE HCL 5 MG TABLET PO PRN ×4 (09:23→22:00)
[2021-07-17 09:45] LABS: HEMATOCRIT 23.6 % (35.4-49); HEMOGLOBIN 8.1 GM/dL (11.7-16.9); MCH 35.9 pg (25.7-33.7); MCHC 34.3 g/dl (32.0-35.9); MEAN CELL VOLUME 104.5 fl (80-96); MEAN PLT VOLUME 7.4 fl (7.5-11.1); PLATELET COUNT 45 10^3/uL (134-434); RBC 2.26 M/mm3 (4.00-5.60); RDW 21.8 % (11.9-15.9)
[2021-07-17 09:57] LABS: ALBUMIN 2.1 g/dl (3.4-5.0); BLOOD UREA NITROGEN 10.9 mg/dL (7-18); CALCIUM 7.8 mg/dL (8.5-10.1)
[2021-07-17 10:01] LABS: CREATININE 1.4 mg/dL (0.55-1.3)
[2021-07-17 10:02] LABS: TOT PROT 6.5 g/dl (6.4-8.2); WHITE BLOOD COUNT 1.7 K/mm3 (4.0-10.0)
[2021-07-17 10:04] LABS: BILIRUBIN,TOTAL 1.6 mg/dL (0.2-1)
[2021-07-17] MEDS ORDERED: ALPRAZolam 0.25 MG TABLET PO PRN (12:48)
[2021-07-17] MEDS ORDERED: oxyCODONE HCL 5 MG TABLET PO PRN (12:49)
[2021-07-17 12:51] LABS: ANISOCYTOSIS 1+; MACROCYTOSIS 0; PLATELET ESTIMATE DECREASED
[2021-07-17] MEDS: ALPRAZolam 1 MG TABLET PO PRN (23:03)
[2021-07-17] MEDS: MELATONIN 5 MG TABLETS PO SCH (23:03)
[2021-07-18] MEDS ORDERED: CEFEPIME HCL 1 GM VIAL (RESTRICTED TO ID) ONE ×3 (00:44→17:08)
[2021-07-18] MEDS ORDERED: DEXTROSE 5%-WATER 100 ML IVPB ONE ×3 (00:45→17:08)
[2021-07-18] MEDS: ZOLPIDEM TARTRATE 5 MG TABLET PO PRN (00:47)
[2021-07-18] MEDS: CEFEPIME 1 GM in DEXTROSE 5%-WATER 100 ML IVPB SCH ×3 (01:18→17:26)
[2021-07-18] MEDS: VANCOMYCIN 1 GRAM (PRE-DOCKED) 1,000 MG/250 ML BAG IVPB SCH (04:13)
[2021-07-18] MEDS: metroNIDAZOLE 250 MG TABLET PO SCH ×3 (06:07→22:56)
[2021-07-18] MEDS: oxyCODONE HCL 5 MG TABLET PO PRN ×4 (07:42→20:15)
[2021-07-18 07:54] LABS: HEMATOCRIT 23.6 % (35.4-49); MCH 35.2 pg (25.7-33.7); MCHC 33.9 g/dl (32.0-35.9); MEAN CELL VOLUME 103.7 fl (80-96); MEAN PLT VOLUME 7.2 fl (7.5-11.1); PLATELET COUNT 39 10^3/uL (134-434); RBC 2.28 M/mm3 (4.00-5.60); RDW 21.4 % (11.9-15.9)
[2021-07-18 07:56] LABS: WHITE BLOOD COUNT 1.7 K/mm3 (4.0-10.0)
[2021-07-18 08:10] LABS: BLOOD UREA NITROGEN 10.2 mg/dL (7-18); CALCIUM 7.7 mg/dL (8.5-10.1)
[2021-07-18 08:14] LABS: CREATININE 1.4 mg/dL (0.55-1.3)
[2021-07-18] MEDS: FOLIC ACID 1 MG TABLET (FP) PO SCH (09:18)
[2021-07-18] MEDS: MAGNESIUM OXIDE 400 MG TABLET (FP) PO SCH (09:19)
[2021-07-18] MEDS: THIAMINE HCL 100 MG TABLET (FP) PO SCH (09:19)
[2021-07-18 10:47] LABS: ANISOCYTOSIS 1+; MACROCYTOSIS 0; PLATELET ESTIMATE DECREASED; TEAR DROP CELLS 1+
[2021-07-18] MEDS: ALPRAZolam 1 MG TABLET PO PRN ×2 (13:58→22:57)
[2021-07-18] MEDS: MELATONIN 5 MG TABLETS PO SCH (22:57)
[2021-07-19] MEDS: oxyCODONE HCL 5 MG TABLET PO PRN ×6 (00:14→22:02)
[2021-07-19] MEDS: ZOLPIDEM TARTRATE 5 MG TABLET PO PRN (00:44)
[2021-07-19] MEDS ORDERED: DEXTROSE 5%-WATER 100 ML IVPB ONE ×3 (02:04→17:39)
[2021-07-19] MEDS ORDERED: CEFEPIME HCL 1 GM VIAL (RESTRICTED TO ID) ONE ×3 (02:04→17:39)
[2021-07-19] MEDS: CEFEPIME 1 GM in DEXTROSE 5%-WATER 100 ML IVPB SCH ×3 (02:47→17:48)
[2021-07-19] MEDS: VANCOMYCIN 1 GRAM (PRE-DOCKED) 1,000 MG/250 ML BAG IVPB SCH ×2 (03:00→04:16)
[2021-07-19] MEDS: metroNIDAZOLE 250 MG TABLET PO SCH (06:15)
[2021-07-19 08:54] LABS: HEMATOCRIT 24.2 % (35.4-49); HEMOGLOBIN 8.2 GM/dL (11.7-16.9); MCH 35.8 pg (25.7-33.7); MEAN CELL VOLUME 105.1 fl (80-96); MEAN PLT VOLUME 7.7 fl (7.5-11.1); PLATELET COUNT 48 10^3/uL (134-434)
[2021-07-19 09:14] LABS: WHITE BLOOD COUNT 1.9 K/mm3 (4.0-10.0)
[2021-07-19 09:52] LABS: ALBUMIN 2.2 g/dl (3.4-5.0); BLOOD UREA NITROGEN 10.6 mg/dL (7-18); CALCIUM 7.8 mg/dL (8.5-10.1)
[2021-07-19 09:55] LABS: CREATININE 1.4 mg/dL (0.55-1.3)
[2021-07-19 09:57] LABS: BILIRUBIN,TOTAL 1.1 mg/dL (0.2-1)
[2021-07-19 09:58] LABS: TOT PROT 6.8 g/dl (6.4-8.2)
[2021-07-19 10:06] LABS: ALPHA 2 MACROGLOBULINS,QN 105 mg/dL (110-276); ALT(SGPT)P5P 13 IU/L (0-55); CHOLESTEROL TOTAL 82 mg/dL (100-199); FIBROSIS SCORE 0.45 (0.00-0.21); GLUCOSE SERUM 85 mg/dL (65-99); HEIGHT 77 in (.); WEIGHT- 266 LBS (.)
[2021-07-19] MEDS: MAGNESIUM OXIDE 400 MG TABLET (FP) PO SCH (10:10)
[2021-07-19] MEDS: THIAMINE HCL 100 MG TABLET (FP) PO SCH (10:11)
[2021-07-19] MEDS: FOLIC ACID 1 MG TABLET (FP) PO SCH (10:11)
[2021-07-19 11:05] LABS: ANISOCYTOSIS 1+; MACROCYTOSIS 1+; PLATELET ESTIMATE DECREASED
[2021-07-19] MEDS: ALPRAZolam 1 MG TABLET PO PRN ×2 (15:10→22:51)
[2021-07-19] MEDS: MELATONIN 5 MG TABLETS PO SCH (22:51)
[2021-07-20] MEDS: ZOLPIDEM TARTRATE 5 MG TABLET PO PRN (00:26)
[2021-07-20] MEDS ORDERED: CEFEPIME HCL 1 GM VIAL (RESTRICTED TO ID) ONE ×3 (02:17→17:01)
[2021-07-20] MEDS ORDERED: DEXTROSE 5%-WATER 100 ML IVPB ONE ×3 (02:17→17:01)
[2021-07-20] MEDS: CEFEPIME 1 GM in DEXTROSE 5%-WATER 100 ML IVPB SCH ×3 (02:18→17:05)
[2021-07-20] MEDS: oxyCODONE HCL 5 MG TABLET PO PRN ×6 (02:19→23:58)
[2021-07-20 08:37] LABS: HEMATOCRIT 24.7 % (35.4-49); HEMOGLOBIN 8.5 GM/dL (11.7-16.9); MCH 36.3 pg (25.7-33.7); MCHC 34.4 g/dl (32.0-35.9); MEAN CELL VOLUME 105.4 fl (80-96); MEAN PLT VOLUME 7.9 fl (7.5-11.1); PLATELET COUNT 58 10^3/uL (134-434); RBC 2.34 M/mm3 (4.00-5.60); RDW 20.6 % (11.9-15.9); WHITE BLOOD COUNT 1.9 K/mm3 (4.0-10.0)
[2021-07-20 09:16] LABS: ALBUMIN 2.4 g/dl (3.4-5.0); BLOOD UREA NITROGEN 12.1 mg/dL (7-18); CALCIUM 8.2 mg/dL (8.5-10.1)
[2021-07-20 09:20] LABS: BILIRUBIN,TOTAL 1.3 mg/dL (0.2-1); CREATININE 1.4 mg/dL (0.55-1.3)
[2021-07-20 09:21] LABS: TOT PROT 7.2 g/dl (6.4-8.2)
[2021-07-20] MEDS ORDERED: INSULIN (NOVOLOG) ASPART 100 UNITS/ML 10ML VIAL ONE (09:42)
[2021-07-20] MEDS: THIAMINE HCL 100 MG TABLET (FP) PO SCH (10:42)
[2021-07-20] MEDS: FOLIC ACID 1 MG TABLET (FP) PO SCH (10:42)
[2021-07-20] MEDS: VANCOMYCIN 1 GRAM (PRE-DOCKED) 1,000 MG/250 ML BAG IVPB SCH (11:05)
[2021-07-20 11:30] LABS: ANISOCYTOSIS 1+; MACROCYTOSIS 2+; OVALOCYTE 1+; PLATELET ESTIMATE DECREASED; TARGET CELLS 1+; TEAR DROP CELLS 1+
[2021-07-20] MEDS: ALPRAZolam 1 MG TABLET PO PRN (17:05)
[2021-07-20] MEDS: MELATONIN 5 MG TABLETS PO SCH (22:36)
[2021-07-21] MEDS ORDERED: DEXTROSE 5%-WATER 100 ML IVPB ONE ×3 (00:51→16:17)
[2021-07-21] MEDS ORDERED: CEFEPIME HCL 1 GM VIAL (RESTRICTED TO ID) ONE ×3 (00:51→16:17)
[2021-07-21] MEDS: ZOLPIDEM TARTRATE 5 MG TABLET PO PRN (00:56)
[2021-07-21] MEDS: CEFEPIME 1 GM in DEXTROSE 5%-WATER 100 ML IVPB SCH ×3 (01:32→18:00)
[2021-07-21] MEDS: ALPRAZolam 1 MG TABLET PO PRN ×3 (01:33→22:50)
[2021-07-21] MEDS: oxyCODONE HCL 5 MG TABLET PO PRN ×5 (06:23→19:55)
[2021-07-21] MEDS: VANCOMYCIN 1 GRAM (PRE-DOCKED) 1,000 MG/250 ML BAG IVPB SCH (11:00)
[2021-07-21] MEDS: FOLIC ACID 1 MG TABLET (FP) PO SCH (11:02)
[2021-07-21] MEDS: THIAMINE HCL 100 MG TABLET (FP) PO SCH (11:02)
[2021-07-21] MEDS: MELATONIN 5 MG TABLETS PO SCH (22:50)
[2021-07-22] MEDS: oxyCODONE HCL 5 MG TABLET PO PRN ×6 (00:09→22:55)
[2021-07-22] MEDS ORDERED: DEXTROSE 5%-WATER 100 ML IVPB ONE ×3 (01:09→17:47)
[2021-07-22] MEDS ORDERED: CEFEPIME HCL 1 GM VIAL (RESTRICTED TO ID) ONE ×3 (01:09→17:47)
[2021-07-22] MEDS: CEFEPIME 1 GM in DEXTROSE 5%-WATER 100 ML IVPB SCH ×3 (01:11→18:36)
[2021-07-22] MEDS: ZOLPIDEM TARTRATE 5 MG TABLET PO PRN (01:11)
[2021-07-22 09:59] LABS: CREATININE 1.6 mg/dL (0.55-1.3); SGOT/AST 38 U/L (15-37)
[2021-07-22 10:00] LABS: SGPT/ALT 17 U/L (13-61); TOT PROT 7.1 g/dl (6.4-8.2)
[2021-07-22 10:01] LABS: BILIRUBIN,TOTAL 1.3 mg/dL (0.2-1)
[2021-07-22 10:02] LABS: ALK PHOS 76 U/L (45-117)
[2021-07-22] MEDS: VANCOMYCIN 1 GRAM (PRE-DOCKED) 1,000 MG/250 ML BAG IVPB SCH (10:06)
[2021-07-22] MEDS: FOLIC ACID 1 MG TABLET (FP) PO SCH (10:11)
[2021-07-22] MEDS: THIAMINE HCL 100 MG TABLET (FP) PO SCH (10:11)
[2021-07-22 10:42] LABS: HEMATOCRIT 23.7 % (35.4-49); MCH 36.1 pg (25.7-33.7); MEAN CELL VOLUME 106.2 fl (80-96); MEAN PLT VOLUME 8.2 fl (7.5-11.1); PLATELET COUNT 66 10^3/uL (134-434); RBC 2.23 M/mm3 (4.00-5.60); RDW 18.6 % (11.9-15.9); WHITE BLOOD COUNT 2.1 K/mm3 (4.0-10.0)
[2021-07-22 11:34] LABS: ALBUMIN 2.3 g/dl (3.4-5.0); BLOOD UREA NITROGEN 13.2 mg/dL (7-18); CALCIUM 7.9 mg/dL (8.5-10.1); CHLORIDE 101 mmol/L (98-107); CO2 24 mmol/L (21-32); GLUCOSE,RANDOM 82 mg/dL (74-106); SODIUM 133 mmol/L (136-145)
[2021-07-22 12:06] LABS: ANISOCYTOSIS 1+; MACROCYTOSIS 1+; PLATELET ESTIMATE DECREASED
[2021-07-22] MEDS: ALPRAZolam 1 MG TABLET PO PRN (14:17)
[2021-07-23] MEDS: MELATONIN 5 MG TABLETS PO SCH ×2 (00:12→23:08)
[2021-07-23] MEDS: ALPRAZolam 1 MG TABLET PO PRN ×2 (00:13→12:17)
[2021-07-23] MEDS ORDERED: CEFEPIME HCL 1 GM VIAL (RESTRICTED TO ID) ONE ×3 (01:19→16:58)
[2021-07-23] MEDS ORDERED: DEXTROSE 5%-WATER 100 ML IVPB ONE ×3 (01:20→16:59)
[2021-07-23] MEDS: CEFEPIME 1 GM in DEXTROSE 5%-WATER 100 ML IVPB SCH ×3 (01:23→17:01)
[2021-07-23] MEDS: ZOLPIDEM TARTRATE 5 MG TABLET PO PRN (01:23)
[2021-07-23] MEDS: oxyCODONE HCL 5 MG TABLET PO PRN ×5 (06:19→23:01)
[2021-07-23] MEDS: metroNIDAZOLE 250 MG TABLET PO SCH (07:15)
[2021-07-23 09:06] LABS: HEMATOCRIT 23.1 % (35.4-49); HEMOGLOBIN 7.9 GM/dL (11.7-16.9); MCH 35.5 pg (25.7-33.7); MCHC 33.9 g/dl (32.0-35.9); MEAN CELL VOLUME 104.6 fl (80-96); MEAN PLT VOLUME 7.7 fl (7.5-11.1); PLATELET COUNT 69 10^3/uL (134-434); RBC 2.21 M/mm3 (4.00-5.60); RDW 18.6 % (11.9-15.9); WHITE BLOOD COUNT 2.1 K/mm3 (4.0-10.0)
[2021-07-23 09:35] LABS: ALBUMIN 2.4 g/dl (3.4-5.0); BLOOD UREA NITROGEN 15.1 mg/dL (7-18); CALCIUM 8.2 mg/dL (8.5-10.1)
[2021-07-23 09:39] LABS: CREATININE 1.7 mg/dL (0.55-1.3)
[2021-07-23 09:40] LABS: BILIRUBIN,TOTAL 1.2 mg/dL (0.2-1); TOT PROT 7.2 g/dl (6.4-8.2)
[2021-07-23] MEDS ORDERED: PT OWN MED DRAWER 7, Y5N ONE (10:31)
[2021-07-23] MEDS: THIAMINE HCL 100 MG TABLET (FP) PO SCH (10:34)
[2021-07-23] MEDS: FOLIC ACID 1 MG TABLET (FP) PO SCH (10:34)
[2021-07-23 11:27] LABS: ANISOCYTOSIS 0; MACROCYTOSIS 0; PLATELET ESTIMATE DECREASED
[2021-07-23] MEDS ORDERED: SODIUM CHLORIDE 1,000 ML IV SCH (14:15)
[2021-07-24] MEDS: ALPRAZolam 1 MG TABLET PO PRN ×3 (00:19→23:22)
[2021-07-24] MEDS ORDERED: CEFEPIME HCL 1 GM VIAL (RESTRICTED TO ID) ONE ×3 (01:39→17:55)
[2021-07-24] MEDS ORDERED: DEXTROSE 5%-WATER 100 ML IVPB ONE ×3 (01:40→17:55)
[2021-07-24] MEDS: CEFEPIME 1 GM in DEXTROSE 5%-WATER 100 ML IVPB SCH ×3 (02:25→18:03)
[2021-07-24] MEDS: ZOLPIDEM TARTRATE 5 MG TABLET PO PRN (02:25)
[2021-07-24 09:57] LABS: HEMATOCRIT 24.6 % (35.4-49); HEMOGLOBIN 8.3 GM/dL (11.7-16.9); MCH 35.9 pg (25.7-33.7); MCHC 33.8 g/dl (32.0-35.9); MEAN CELL VOLUME 106.1 fl (80-96); MEAN PLT VOLUME 8.7 fl (7.5-11.1); PLATELET COUNT 73 10^3/uL (134-434); RBC 2.32 M/mm3 (4.00-5.60); RDW 18.8 % (11.9-15.9)
[2021-07-24] MEDS: THIAMINE HCL 100 MG TABLET (FP) PO SCH (09:57)
[2021-07-24] MEDS: oxyCODONE HCL 5 MG TABLET PO PRN ×4 (10:04→22:13)
[2021-07-24] MEDS: FOLIC ACID 1 MG TABLET (FP) PO SCH (10:05)
[2021-07-24 10:06] LABS: WHITE BLOOD COUNT 1.9 K/mm3 (4.0-10.0)
[2021-07-24 10:44] LABS: ANISOCYTOSIS 2+; MACROCYTOSIS 2+; PLATELET ESTIMATE DECREASED
[2021-07-24 11:14] LABS: BLOOD UREA NITROGEN 15.8 mg/dL (7-18)
[2021-07-24 11:15] LABS: ALBUMIN 2.5 g/dl (3.4-5.0)
[2021-07-24 11:17] LABS: CALCIUM 8.1 mg/dL (8.5-10.1); CREATININE 1.8 mg/dL (0.55-1.3); MAGNESIUM 1.2 mg/dL (1.8-2.4)
[2021-07-24 11:19] LABS: BILIRUBIN,TOTAL 1.1 mg/dL (0.2-1); TOT PROT 7.5 g/dl (6.4-8.2)
[2021-07-24] MEDS: MELATONIN 5 MG TABLETS PO SCH (22:13)
[2021-07-25] MEDS: ZOLPIDEM TARTRATE 5 MG TABLET PO PRN (00:19)
[2021-07-25] MEDS ORDERED: CEFEPIME HCL 1 GM VIAL (RESTRICTED TO ID) ONE ×2 (01:03→10:00)
[2021-07-25] MEDS ORDERED: DEXTROSE 5%-WATER 100 ML IVPB ONE ×2 (01:03→10:00)
[2021-07-25] MEDS: CEFEPIME 1 GM in DEXTROSE 5%-WATER 100 ML IVPB SCH ×2 (01:11→10:35)
[2021-07-25] MEDS: oxyCODONE HCL 5 MG TABLET PO PRN ×4 (03:13→21:37)
[2021-07-25] MEDS: ALPRAZolam 1 MG TABLET PO PRN ×2 (08:17→16:19)
[2021-07-25] MEDS: THIAMINE HCL 100 MG TABLET (FP) PO SCH (10:19)
[2021-07-25] MEDS: FOLIC ACID 1 MG TABLET (FP) PO SCH (10:19)
[2021-07-25 11:39] LABS: HEMATOCRIT 22.8 % (35.4-49); HEMOGLOBIN 7.7 GM/dL (11.7-16.9); MCH 35.8 pg (25.7-33.7); MCHC 33.8 g/dl (32.0-35.9); MEAN CELL VOLUME 105.8 fl (80-96); MEAN PLT VOLUME 8.4 fl (7.5-11.1); PLATELET COUNT 78 10^3/uL (134-434); RBC 2.16 M/mm3 (4.00-5.60); RDW 18.3 % (11.9-15.9)
[2021-07-25 11:52] LABS: WHITE BLOOD COUNT 1.9 K/mm3 (4.0-10.0)
[2021-07-25 11:57] LABS: CALCIUM 8.1 mg/dL (8.5-10.1)
[2021-07-25 11:58] LABS: BLOOD UREA NITROGEN 14.8 mg/dL (7-18); MAGNESIUM 1.4 mg/dL (1.8-2.4)
[2021-07-25 12:01] LABS: CREATININE 1.8 mg/dL (0.55-1.3)
[2021-07-25 13:20] LABS: ANISOCYTOSIS 1+; MACROCYTOSIS 0; OVALOCYTE 1+; PLATELET ESTIMATE DECREASED
[2021-07-25] MEDS: AMOX TR/POT CLAV 500MG/125MG TABLETS (FP) PO SCH (17:23)
[2021-07-25] MEDS: MELATONIN 5 MG TABLETS PO SCH (22:41)
[2021-07-26] MEDS: ALPRAZolam 1 MG TABLET PO PRN ×3 (00:05→21:08)
[2021-07-26] MEDS: ZOLPIDEM TARTRATE 5 MG TABLET PO PRN ×2 (01:29→23:01)
[2021-07-26] MEDS: oxyCODONE HCL 5 MG TABLET PO PRN ×5 (07:25→23:19)
[2021-07-26] MEDS: FOLIC ACID 1 MG TABLET (FP) PO SCH (11:24)
[2021-07-26] MEDS: THIAMINE HCL 100 MG TABLET (FP) PO SCH (11:24)
[2021-07-26] MEDS: AMOX TR/POT CLAV 500MG/125MG TABLETS (FP) PO SCH ×2 (11:24→19:02)
[2021-07-26 12:22] LABS: BASO % 1.4 % (0-2.0); EOS % 1.4 % (0-4.5); HEMATOCRIT 24.9 % (35.4-49); HEMOGLOBIN 8.4 GM/dL (11.7-16.9); LYMPH % 22.4 % (8-40); MCH 35.6 pg (25.7-33.7); MCHC 33.7 g/dl (32.0-35.9); MEAN CELL VOLUME 105.9 fl (80-96); MEAN PLT VOLUME 8.4 fl (7.5-11.1); MONO % 17.6 % (3.8-10.2); NEUT % 57.2 % (42.8-82.8); PLATELET COUNT 69 10^3/uL (134-434); RBC 2.35 M/mm3 (4.00-5.60); RDW 18.2 % (11.9-15.9)
[2021-07-26 12:26] LABS: WHITE BLOOD COUNT 1.6 K/mm3 (4.0-10.0)
[2021-07-26 14:45] LABS: ANISOCYTOSIS 1+; MACROCYTOSIS 0; OVALOCYTE 1+; PLATELET ESTIMATE DECREASED
[2021-07-26] MEDS: MELATONIN 5 MG TABLETS PO SCH (21:08)
[2021-07-27] MEDS: oxyCODONE HCL 5 MG TABLET PO PRN ×3 (08:10→16:00)
[2021-07-27] MEDS: AMOX TR/POT CLAV 500MG/125MG TABLETS (FP) PO SCH (08:10)
[2021-07-27 08:26] LABS: HEMATOCRIT 23.5 % (35.4-49); HEMOGLOBIN 8.1 GM/dL (11.7-16.9); MCH 35.9 pg (25.7-33.7); MCHC 34.3 g/dl (32.0-35.9); MEAN CELL VOLUME 104.5 fl (80-96); MEAN PLT VOLUME 8.2 fl (7.5-11.1); PLATELET COUNT 70 10^3/uL (134-434); RBC 2.25 M/mm3 (4.00-5.60); RDW 18.2 % (11.9-15.9)
[2021-07-27 08:36] LABS: WHITE BLOOD COUNT 1.8 K/mm3 (4.0-10.0)
[2021-07-27 09:30] LABS: ANISOCYTOSIS 1+; MACROCYTOSIS 1+; PLATELET ESTIMATE DECREASED
[2021-07-27] MEDS ORDERED: VITAMIN B COMP W-C 1 EA TABLET (NEPHRO-VITE) PO SCH (10:00)
[2021-07-27 10:41] VITALS: BP 136/70; PULSE 88; TEMP 98
[2021-07-27] MEDS: FOLIC ACID 1 MG TABLET (FP) PO SCH (11:59)
[2021-07-27] MEDS: THIAMINE HCL 100 MG TABLET (FP) PO SCH (12:00)
[2021-07-27] MEDS: ALPRAZolam 1 MG TABLET PO PRN (13:24)
[2021-07-27] MEDS ORDERED: PT OWN MED DRAWER 7, Y5N ONE (14:33)
== END 2021-07-27 17:46 | disposition home or self-care (01) | DRG 663 ==
LOC: FER 16:21 → JICU 07-10 02:11 → J8W 07-12 22:15
PROVIDERS: ADMIT Internal Medicine; ATTEND Family Medicine
PROC: 30233R1 Transfusion of Nonautologous Platelets into Peripheral Vein, Percutaneous Approach (ICD-10-PCS; principal; 2021-07-11)
PROC: 30233N1 Transfusion of Nonautologous Red Blood Cells into Peripheral Vein, Percutaneous Approach (ICD-10-PCS; 2021-07-11)
DX: D64.9 Anemia, unspecified (principal); E87.1 Hypo-osmolality and hyponatremia; E87.6 Hypokalemia; E83.51 Hypocalcemia; N17.9 Acute kidney failure, unspecified; F41.9 Anxiety disorder, unspecified; M54.50 Low back pain, unspecified; M50.20 Other cervical disc displacement, unspecified cervical region; M54.30 Sciatica, unspecified side; I45.10 Unspecified right bundle-branch block; G62.9 Polyneuropathy, unspecified; D61.818 Other pancytopenia; L03.115 Cellulitis of right lower limb; K76.0 Fatty (change of) liver, not elsewhere classified; L02.31 Cutaneous abscess of buttock; M66.0 Rupture of popliteal cyst; E83.42 Hypomagnesemia; E83.39 Other disorders of phosphorus metabolism; M79.669 Pain in unspecified lower leg
CPT/HCPCS: 36415; 36430; 36511; 71045-TC-FY; 73700-TC-RT; 73706-TC-RT; 76705-TC; 80048; 80053; 80307; 81003; 81015; 82172; 82247; 82436; 82465; 82533; 82550; 82553; 82570; 82607; 82728; 82746; 82747; 82784; 82947; 82977; 83010; 83036; 83540; 83550; 83605; 83615; 83735; 83883; 83930; 83935; 84100; 84133; 84155; 84165; 84300; 84439; 84443; 84450; 84460; 84478; 84550; 85014; 85025; 85384; 85597; 85610; 85613; 85651; 85730; 85732; 86038; 86140; 86146; 86147; 86334; 86431; 86705; 86706; 86707; 86850; 86880; 86900; 86901; 86922; 87040; 87086; 87340; 87350; 87389; 87517; 87522; 88300-TC; 93005; 93010; 93306-TC; 93971-TC; 97116-GP; 97161-GP; 99285-25; C9803; G0480; J0131; P9034; P9038; P9058; Q9967; U0003; U0005

== ENCOUNTER 2022-11-29 16:32 | Emergency (ER) | payer OTHER ==
[2022-11-29 16:55] VITALS: BP 130/86; PULSE 104; RESP 20; TEMP 97.8; BMI 30.8
[2022-11-29] MEDS ORDERED: KETOROLAC TROMETHAMINE 30 MG/1 ML VIAL IM ONE (17:01)
[2022-11-29] MEDS ORDERED: KETOROLAC TROMETHAMINE 15 MG/ML VIAL ONE (17:05)
== END 2022-11-29 18:15 | disposition home or self-care (01) ==
LOC: FER 16:32
PROC: 3E023GC Introduction of Other Therapeutic Substance into Muscle, Percutaneous Approach (ICD-10-PCS; principal; 2022-11-29)
DX: M25.562 Pain in left knee (principal)
CPT/HCPCS: 73562-TC-LT-FY; 99284-25

== ENCOUNTER 2023-02-22 20:13 | Emergency (ER) | payer OTHER ==
[2023-02-22 20:26] VITALS: BP 140/87; PULSE 112; RESP 16; TEMP 98.1; BMI 30.8
== END 2023-02-22 20:42 | disposition home or self-care (01) ==
LOC: FER 20:13
DX: R21 Rash and other nonspecific skin eruption (principal); L23.9 Allergic contact dermatitis, unspecified cause
CPT/HCPCS: 99283-25